=== PATIENT | female | born 1980 | race African-American/Black ===

== ENCOUNTER 2022-03-18 13:49 | Observation (INO) | payer BC ==
[~2022-03-18] VITALS: Ht 167.6 cm; Wt 110.2 kg
[2022-03-18 14:17] LABS: BASOPHILS # (AUTO) 0.1 (0.0-0.1); BASOPHILS % 0.6 % (0.0-1.0); EOSINOPHILS # (AUTO) 0.1 (0.0-0.4); EOSINOPHILS % 0.7 % (0.0-6.0); HEMATOCRIT 33.9 % (34.2-44.1); HEMOGLOBIN 11.8 g/dL (12.0-16.0); LYMPHOCYTES # (AUTO) 2.5 (1.0-3.2); LYMPHOCYTES % 31.4 % (18.0-39.1); MEAN CORPUSCULAR HEMOGLOBIN 26.5 pg (28-32); MEAN CORPUSCULAR HGB CONC 34.8 g/dL (31-35); MEAN CORPUSCULAR VOLUME 76.2 fL (81-99); MONOCYTES # (AUTO) 0.8 (0.2-0.8); MONOCYTES % 10.1 % (4.4-11.3); NEUTROPHILS # (AUTO) 4.6 (2.1-6.9); PLATELET COUNT 284 x10e3/uL (140-360); RED BLOOD COUNT 4.45 x10e6/uL (3.6-5.1); RED CELL DISTRIBUTION WIDTH 13.7 % (11.7-14.4)
[2022-03-18 14:22] LABS: CLARITY,URINE CLEAR (CLEAR); COLOR,URINE YELLOW (YELLOW); LEUKOCYTE ESTERASE ,URINE NEGATIVE (NEGATIVE); NITRITE,URINE NEGATIVE (NEGATIVE)
[2022-03-18 14:23] LABS: KETONES,URINE NEGATIVE (NEGATIVE); PROTEIN,URINE DIPSTICK NEGATIVE (NEGATIVE)
[2022-03-18 14:24] LABS: URINE UROBILINOGEN 0.2 mg/dL (0.2 - 1)
[2022-03-18 14:28] LABS: INR 0.95; PROTHROMBIN TIME 13.5 seconds (11.9-14.5)
[2022-03-18 14:29] LABS: PARTIAL THROMBOPLASTIN TIME 30.3 seconds (23.8-35.5)
[2022-03-18] MEDS ORDERED: ONDANSETRON HCL INJ 2MG/ML 2ML 2 MG/ML VIAL IV PRN (14:30)
[2022-03-18] MEDS ORDERED: Morphine 2mg Syringe 2 MG/ML SYR IV PRN (14:30)
[2022-03-18 14:34] LABS: BACTERIA,URINE FEW /HPF; EPITHELIAL CELLS,URINE FEW /LPF; RBC,URINE 0-5 /HPF (0-5); WBC,URINE (MAN) 0-5 /HPF (0-5)
[2022-03-18 14:35] LABS: ALBUMIN 3.3 g/dL (3.5-5.0); ALBUMIN/GLOBULIN RATIO 0.8 (0.8-2.0); CALCIUM 8.6 mg/dL (8.4-10.2); CREATININE, SERUM 0.81 mg/dL (0.57-1.11)
[2022-03-18 15:15] VITALS: BP 120/77
[2022-03-18 16:09] VITALS: BP 120/77
[2022-03-18] MEDS ORDERED: OIL OF OREGAN1500 MG PO (17:38)
[2022-03-18] MEDS ORDERED: TOTAL BEETS PO (17:38)
[2022-03-18] MEDS ORDERED: CRANBERRY200 MG PO (17:38)
[2022-03-18] MEDS ORDERED: PRENATAL MULTI1 EAC3 PO (17:38)
[2022-03-18] MEDS ORDERED: VITAMIN C1000 MG PO (17:38)
[2022-03-18] MEDS ORDERED: AMLODIPINE BESYL5 MG PO (17:38)
[2022-03-18] MEDS ORDERED: PANTOPRAZOLE SO40 MG PO (17:38)
[2022-03-18] MEDS ORDERED: PROBIOTIC & AC1 EACH PO (17:38)
[2022-03-18] MEDS ORDERED: ASPIRIN81 MG PO (17:38)
[2022-03-18] MEDS ORDERED: METOPROLOL SUCC50 MG PO (17:38)
[2022-03-18 19:47] LABS: % IRON SATURATION 15 % (15-50); IRON 61 ug/dL (50-170); TOTAL IRON BINDING CAPACITY 396 ug/dL (261-478); TRANSFERRIN 283 mg/dL (180-382)
[2022-03-18 19:48] LABS: CHOL/HDL RATIO 5.3 (3.0-3.6)
[2022-03-18 20:00] VITALS: BP 113/77
[2022-03-18] MEDS: ACETAMINOPHEN 325 MG TAB PO PRN (20:07)
[2022-03-18 20:09] LABS: FREE THYROXINE INDEX 1.7313 (1.4-3.8); THYROID STIMULATING HORMONE 1.533 uIU/mL (0.350-4.940)
[2022-03-18 20:32] VITALS: BP 120/77
[2022-03-18 22:20] LABS: CREATINE KINASE 105 IU/L (29-168)
[2022-03-18] MEDS: SODIUM CHLORIDE 0.9% 1000ML 1,000 ML IV SCH (23:43)
[2022-03-19] VITALS: BP 116/76
[2022-03-19 04:00] VITALS: BP 119/70
[2022-03-19] MEDS: ACETAMINOPHEN 325 MG TAB PO PRN ×2 (04:02→12:30)
[2022-03-19 05:59] LABS: BASOPHILS # (AUTO) 0.1 (0.0-0.1); BASOPHILS % 0.6 % (0.0-1.0); EOSINOPHILS # (AUTO) 0.1 (0.0-0.4); EOSINOPHILS % 0.9 % (0.0-6.0); HEMATOCRIT 31.7 % (34.2-44.1); HEMOGLOBIN 11.3 g/dL (12.0-16.0); LYMPHOCYTES # (AUTO) 2.5 (1.0-3.2); LYMPHOCYTES % 31.8 % (18.0-39.1); MEAN CORPUSCULAR HGB CONC 35.6 g/dL (31-35); MEAN CORPUSCULAR VOLUME 75.7 fL (81-99); MONOCYTES # (AUTO) 0.7 (0.2-0.8); MONOCYTES % 8.8 % (4.4-11.3); NEUTROPHILS # (AUTO) 4.5 (2.1-6.9); NEUTROPHILS % 57.4 % (38.7-80.0); PLATELET COUNT 241 x10e3/uL (140-360); RED BLOOD COUNT 4.19 x10e6/uL (3.6-5.1); RED CELL DISTRIBUTION WIDTH 13.7 % (11.7-14.4)
[2022-03-19] MEDS ORDERED: IOPAMIDOL 370 MG/ML 100 ML INFUS..BTL INJ ONE ×2 (06:09→12:02)
[2022-03-19 06:34] LABS: ALBUMIN 2.8 g/dL (3.5-5.0); ALBUMIN/GLOBULIN RATIO 0.8 (0.8-2.0); ANION GAP 12.8 mmol/L (8-16); CALCIUM 8.1 mg/dL (8.4-10.2); CREATINE KINASE 79 IU/L (29-168); CREATININE, SERUM 0.76 mg/dL (0.57-1.11); POTASSIUM 3.8 mmol/L (3.5-5.1)
[2022-03-19 07:38] VITALS: BP 126/92
[2022-03-19 08:38] VITALS: BP 126/63
[2022-03-19] MEDS ORDERED: ASCORBIC ACID 500 MG TAB PO SCH (09:00)
[2022-03-19] MEDS ORDERED: ASPIRIN 81 MG CHEW TAB PO SCH (09:00)
[2022-03-19] MEDS: METOPROLOL SUCCINATE 50 MG TAB XL PO SCH ×2 (09:00→17:00)
[2022-03-19] MEDS ORDERED: PANTOPRAZOLE SOD 40 MG TABEC PO SCH (09:00)
[2022-03-19] MEDS ORDERED: AMLODIPINE BESYLATE 5 MG TAB PO SCH (09:00)
[2022-03-19] MEDS: SODIUM CHLORIDE 0.9% 1000ML 1,000 ML IV SCH (09:45)
[2022-03-19 11:30] VITALS: BP 135/96
[2022-03-19] MEDS ORDERED: KETOROLAC TROMETHAMINE 30 MG/ML VIAL IV PRN (12:45)
== END 2022-03-19 18:30 | disposition home or self-care (01) ==
LOC: ER 14:10 → ERHOLD 14:17 → INTOOBSV 14:17 → MED/SURG3 15:03
PROVIDERS: ADMIT Family Medicine; ATTEND Family Medicine
DX: R07.89 Other chest pain (principal); K21.00 Gastro-esophageal reflux disease with esophagitis, without bleeding; I10 Essential (primary) hypertension; N93.9 Abnormal uterine and vaginal bleeding, unspecified; E66.9 Obesity, unspecified; Z68.39 Body mass index [BMI] 39.0-39.9, adult; Z20.822 Contact with and (suspected) exposure to COVID-19
CPT/HCPCS: 36415 ×2; 71045; 71260; 80053 ×2; 80061; 81001; 81025; 82550 ×2; 82553 ×2; 83540; 84436; 84443; 84466; 84479; 84484 ×2; 85025 ×2; 85610; 85730; 93005; 99284; G0378 ×2; J1885; J2270; J7030 ×2; Q9967; S0164; U0002